=== PATIENT | male | born 1985 | race Caucasian/White ===

== ENCOUNTER 2024-06-15 13:14 | Emergency (ER) | payer OTHER ==
[~2024-06-15] VITALS: Ht 177.8 cm; Wt 69.9 kg
[2024-06-15] MEDS ORDERED: HYDROXYZINE HCL50 MG (13:26)
[2024-06-15] MEDS ORDERED: FLOMAX0.4 MG (13:26)
[2024-06-15] MEDS ORDERED: ASPIRIN 81 MG CHEW PO ONE (13:30)
[2024-06-15] MEDS ORDERED: NITROGLYCERIN 0.4 MG SUBL SL PRN (13:30)
[2024-06-15 13:33] LABS: BASOPHILS 0.6 % (0-2); EOSINOPHILS 0.5 % (0-6); HEMATOCRIT 40.5 % (35.0-50.0); HEMOGLOBIN 13.6 g/dL (12.0-18.0); LYMPHOCYTES 37.5 % (24-44); MCH 31.6 (27-36); MCHC 33.6 g/dl (30-36); MCV 94.1 fl (81-99); MONOCYTES 14.6 % (0-12); NEUTROPHILS 46.8 % (39-80); PLATELET COUNT 206 K/uL (140-440); RBC 4.31 M/ul (4.3-5.7); RDW 12.8 (10.5-15.0)
[2024-06-15 13:49] LABS: ALBUMIN 3.9 g/dL (3.4-5.0); ALBUMIN/GLOBULIN RATIO 0.98 (1.1-2.4); ALKALINE PHOSPHATASE 60 U/L (46-116); ALT (SGPT) 21 U/L (14-59); ANION GAP 10.9 (7-21); AST (SGOT) 26 U/L (15-37); BILIRUBIN, TOTAL 0.2 mg/dL (0.2-1.0); BUN/CREATININE RATIO 12.64 (6.0-28.6); CALCIUM 8.8 mg/dL (8.5-10.1); CARBON DIOXIDE 32 mmol/L (21-32); CHLORIDE 100 mmol/L (98-107); CREATININE, SERUM 0.87 mg/dL (0.70-1.30); GLOMERULAR FILTRATION RATE,EST 113 mL/min (>60); MAGNESIUM 1.9 mg/dL (1.8-2.4); POTASSIUM 3.9 mmol/L (3.5-5.1); PROTEIN, TOTAL 7.9 g/dL (6.4-8.2); UREA NITROGEN 11 mg/dL (7-18)
[2024-06-15] MEDS ORDERED: VENTOLIN HFA18 GM INH (14:17)
[2024-06-15] MEDS ORDERED: ROBITUSSIN COU237 M2 PO (14:17)
[2024-06-15 14:24] VITALS: BP 111/75
--- NOTE | 2024-06-16 13:58 | EKG ---
[facility] [address] [facility] [place], [place] [address] Signed Normal sinus rhythm Normal ECG No previous ECGs available Confirmed by Lei Claros MD ([id number]) on 06/16/2024 1:58:34 PM Electronically Signed By: LEI CLAROS MD 06/16/24 1358 PATIENT NAME: JOAQUIN SANTANA Electrocardiogram DATE OF : 83 PHYSICIAN: LEI CLAROS MD REPORT #: [id number] REPORT IS CONFIDENTIAL AND NOT TO BE RELEASED WITHOUT AUTHORIZATION
== END 2024-06-15 14:27 | disposition home or self-care (01) ==
LOC: ED 13:14
PROVIDERS: Emergency Medicine
DX: R07.81 Pleurodynia (principal); D72.819 Decreased white blood cell count, unspecified; Z88.6 Allergy status to analgesic agent; Z79.899 Other long term (current) drug therapy
CPT/HCPCS: 36415; 71045; 80053; 83735; 84484; 85025; 93005; 93010; 99284-25; A9270